=== PATIENT | male | born 1995 | race Caucasian/White ===

== ENCOUNTER 2016-10-07 16:36 | Emergency (ER) | payer OTHER ==
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
[2016-10-07 17:57] LABS: CHLORIDE,CL 104 mmol/L (98-110); SODIUM,NA 139 mmol/L (136-146)
[2016-10-07 18:23] VITALS: BP 113/65
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
== END 2016-10-07 18:19 | disposition home or self-care (01) ==
LOC: MW.ED 16:36
DX: S22.32XA Fracture of one rib, left side, initial encounter for closed fracture (principal); V86.99XA Unspecified occupant of other special all-terrain or other off-road motor vehicle injured in nontraffic accident, initial encounter
CPT/HCPCS: 36415; 70450; 70450-26; 71101-26-LT; 71101-LT; 72125; 72125-26; 72170; 72170-26; 80053; 81001; 84484; 85025; 93005; 99284; 99285-25